=== PATIENT | male | born 1975 | race African-American/Black ===

== ENCOUNTER 2017-10-05 12:19 | Emergency (ER) | payer OTHER ==
[~2017-10-05] VITALS: Ht 167.6 cm; Wt 108.0 kg
--- OUTSIDE RECORDS SUMMARY | 2017-10-05 12:22 | XMS REPORT | Clinical Summary ---
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 Disp. Refills Start End Date Status Date hydroCHLOROthiazide Take 1 tablet (12.5 mg 90 tablet 1 08/01/2004/13 Active (HYDRODIURIL) 12.5 MG total) by mouth daily. 17 18 tabletIndications: Essential hypertension ergocalciferol (VITAMIN Take 1 capsule (50,000 12 capsule 0 08/12/20 10/30/19 Active D2) 50,000 unit Units total) by mouth 17 18 capsuleIndications: Low once a week for 12 doses. vitamin D level atorvastatin (LIPITOR) 40 TAKE 1 TABLET(40 MG) BY 90 tablet 1 Active MG tablet MOUTH DAILY 17 atorvastatin (LIPITOR) 10 Take 1 tablet (10 mg 30 tablet 3 07/08/20 10/04/19 Discontin MG tablet total) by mouth daily. 16 17 ued atorvastatin (LIPITOR) 40 Take 1 tablet (40 mg 30 tablet 5 10/04/19 08/21/20 Discontin MG tablet total) by mouth daily. 17 17 ued Active Problems Problem Noted Date Low vitamin D level 08/12/2017 Trouble staying asleep 05/29/2017 Hypercholesteremia 10/04/2016 Elevated liver enzymes 10/04/2016 Annual physical exam 07/04/2016 Resolved Problems Problem Noted Date Resolved Date Elevated blood pressure 03/03/2017 05/29/2017 Encounters Date Type Specialty Care Team Description 09/29/2017 Telephone Family Medicine Noemi Mosher DO 08/21/2017 Refill Family Medicine Noemi Mosher DO 08/12/2017 Orders Only Family Medicine Noemi Mosher DO Low vitamin D level (Primary Dx) 08/01/2017 Lab Lab Noemi Mosher DO Essential hypertension; Annual physical exam 08/01/2017 Office Visit Noemi Paris DO Annual physical exam (Primary Dx); Essential hypertension 05/29/2017 Lab Lab Noemi Mosher DO Hypercholesteremia; Essential hypertension; Elevated liver enzymes 05/29/2017 Office Visit Noemi Paris DO Hypercholesteremia (Primary Dx); Essential hypertension; Elevated liver enzymes; Trouble staying asleep 03/03/2017 Lab Lab Noemi Mosher DO Hypercholesteremia; Elevated liver enzymes; Elevated blood pressure 03/03/2017 Office Visit Noemi Paris DO Hypercholesteremia (Primary Dx); Elevated liver enzymes; Elevated blood pressure 10/04/2016 Lab Lab Noemi Mosher DO Elevated liver enzymes; Hypercholesteremia 10/04/2016 Office Visit Noemi Paris DO Hypercholesteremia (Primary Dx); Elevated liver enzymes after 10/04/2016 Family History Medical History Relation Name Comments No Known Problems Father No Known Problems Mother Relation Name Status Comments Father Mother Alive Social History Tobacco Use Types Packs/Day Years Used Date Never Smoker Smokeless Tobacco: Current User Alcohol Use Drinks/Week oz/Week Comments Yes occassional beer Sex Assigned at Date Recorded Not on file Last Filed Vital Signs Vital Sign Reading Time Taken Blood Pressure 149/96 08/01/2017 1:41 PM [employer]CH[employer] Pulse 76 08/01/2017 1:34 PM [employer]IGN [employer]CH[employer] Temperature 36.6 C (97.8 F) 03/03/2017 9:29 AM CDT Respiratory Rate - - Oxygen Saturation 99% 08/01/2017 1:34 PM DESIGN ARCHITECT Inhaled Oxygen - - Concentration Weight 110 kg (242 lb) 08/01/2017 1:34 PM DESIGN ARCHITECT Height 152.4 cm (5') 08/01/2017 1:34 PM DESIGN ARCHITECT Body Mass Index 47.26 08/01/2017 1:34 PM DESIGN ARCHITECT Plan of Treatment Date Type Specialty Care Team Description 10/31/2017 Office Visit Noemi Paris DO [address] [facility] [address] [place] [address] Health Maintenance Due Date Last Done Comments INFLUENZA VACCINE 03/25/2017 Results * Vitamin D 25 hydroxy level (08/01/2017 2:22 PM) Component Value Ref Range Vitamin D, 25-hydroxy 12 (L) 30 - 100 ng/mL Comment: Vitamin D Status 25-OH Vitamin D: Deficiency: <20 ng/mL Insufficiency: 20 - 29 ng/mL Optimal: > or=30 ng/mL For 25-OH Vitamin D testing on patients on D2-supplementation and patients for whom quantitation of D2 and D3 fractions is required, the QuestAssureD(TM) 25-OH VIT D, (D2,D3), LC/MS/MS is recommended: order code 54323 (patients >2yrs). For more information on this test, go to: http://education.[employer]/faq/IFS515 (This link is being provided for informational/educational purposes only.) Specimen Performing Laboratory [facility] * CBC with platelet and differential (08/01/2017 2:22 PM) Component Value Ref Range WBC 7.0 3.8 - 10.8 Thousand/uL RBC 4.44 4.20 - 5.80 Million/uL HGB 12.0 (L) 13.2 - 17.1 g/dL HCT 37.0 (L) 38.5 - 50.0 % MCV 83.3 80.0 - 100.0 fL MCH 27.0 27.0 - 33.0 pg MCHC 32.4 32.0 - 36.0 g/dL RDW 11.4 11.0 - 15.0 % Platelet count 201 140 - 400 Thousand/uL MPV 10.8 7.5 - 12.5 fL Neutrophils, absolute 3,675 1,500 - 7,800 cells/uL Lymphocytes, absolute 2,548 850 - 3,900 cells/uL Monocytes, absolute 581 200 - 950 cells/uL Eosinophils, absolute 168 15 - 500 cells/uL Basophils, absolute 28 0 - 200 cells/uL Neutrophils 52.5 % Lymphocytes 36.4 % Monocytes 8.3 % Eosinophils 2.4 % Basophils + RC 0.4 % Specimen Performing Laboratory [facility] * Basic metabolic panel (08/01/2017 2:22 PM) Component Value Ref Range Glucose 87 65 - 99 mg/dL Comment: Fasting reference interval BUN, whole blood 12 7 - 25 mg/dL Creatinine 0.93 0.60 - 1.35 mg/dL EGFR Non-Afr. Cymraes 101 > OR=60 mL/min/1.73m2 EGFR 117 > OR=60 mL/min/1.73m2 BUN/creatinine ratio NOT APPLICABLE 6 - 22 (calc) Sodium 139 135 - 146 mmol/L Potassium 4.1 3.5 - 5.3 mmol/L Chloride 102 98 - 110 mmol/L CO2 28 20 - 31 mmol/L Calcium 10.0 8.6 - 10.3 mg/dL Specimen Performing Laboratory [facility] * Lipid panel (05/29/2017 11:38 AM) Only the most recent of 3 results within the time period is included. Component Value Ref Range Cholesterol, total 181 <200 mg/dL HDL cholesterol 50 >40 mg/dL Triglycerides 137 <150 mg/dL LDL cholesterol 106 (H) mg/dL (calc) calculated Comment: Reference range: <100 Desirable range <100 mg/dL for patients with CHD or diabetes and <70 mg/dL for diabetic patients with known heart disease. LDL-C is now calculated using the Isidro-Ana Paula calculation, which is a validated novel method providing better accuracy than the Friedewald equation in the estimation of LDL-C. Isidro SS et al. NAHUM. 2013;310(84): 9150-4675 (http://education.[employer]/faq/IHK733) Cholesterol/HDL ratio 3.6 <5.0 (calc) Non-HDL cholesterol 131 (H) <130 mg/dL (calc) Comment: For patients with diabetes plus 1 major ASCVD risk factor, treating to a non-HDL-C goal of <100 mg/dL (LDL-C of <70 mg/dL) is considered a therapeutic option. Specimen Performing Laboratory [facility] * Comprehensive metabolic panel (05/29/2017 11:38 AM) Only the most recent of 3 results within the time period is included. Component Value Ref Range Glucose 90 65 - 99 mg/dL Comment: Fasting reference interval BUN, whole blood 15 7 - 25 mg/dL Creatinine 0.97 0.60 - 1.35 mg/dL EGFR Non-Afr. Cymraes 96 > OR=60 mL/min/1.73m2 EGFR 111 > OR=60 mL/min/1.73m2 BUN/creatinine ratio NOT APPLICABLE (calc) Sodium 141 135 - 146 mmol/L Potassium 4.6 3.5 - 5.3 mmol/L Chloride 103 98 - 110 mmol/L CO2 29 20 - 31 mmol/L Calcium 10.2 8.6 - 10.3 mg/dL Protein 8.2 (H) 6.1 - 8.1 g/dL Albumin, S 4.8 3.6 - 5.1 g/dL Globulin, total 3.4 1.9 - 3.7 g/dL (calc) Albumin/globulin ratio 1.4 1.0 - 2.5 (calc) Total bilirubin 0.5 0.2 - 1.2 mg/dL Alkaline phosphatase 66 40 - 115 U/L AST 31 10 - 40 U/L ALT 74 (H) 9 - 46 U/L Specimen Performing Laboratory [facility] * Hepatitis acute panel (10/04/2016 9:59 AM) Component Value Ref Range Hepatitis A IgM NON-REACTIVE NON-REACTIVE Hepatitis B surface Ag NON-REACTIVE NON-REACTIVE Hepatitis B core IgM NON-REACTIVE NON-REACTIVE Hepatitis C Ab NON-REACTIVE NON-REACTIVE Signal/cutoff 0.02 <1.00 Specimen Performing Laboratory [facility] after 10/04/2016 Insurance Payer Benefit Subscriber ID Type Phone Address Plan / Group AETNA AETNA PPO xxxxxxxxxx PPO OPEN CHOICE
[2017-10-05] MEDS ORDERED: blood pressure med (13:40)
[2017-10-05] MEDS ORDERED: KETOROLAC TROMETHAMINE 60 MG/2 ML VIAL IM ONE (15:15)
[2017-10-05] MEDS ORDERED: IBUPROFEN400 MG PO (16:12)
[2017-10-05] MEDS ORDERED: PREDNISONE20 MG PO (16:13)
== END 2017-10-05 16:30 | disposition home or self-care (01) ==
LOC: FSED 12:19
DX: M25.511 Pain in right shoulder (principal); M54.12 Radiculopathy, cervical region; I10 Essential (primary) hypertension
CPT/HCPCS: 99283; J1885